=== PATIENT | female | born 1970 | race Caucasian/White ===

== ENCOUNTER 2017-12-10 11:17 | Emergency (ER) | payer OTHER ==
[~2017-12-10] VITALS: Ht 165.1 cm; Wt 80.3 kg
[~2017-12-10 11:17] MED LIST: TROKENDI XR PO
[2017-12-10] MEDS ORDERED: SODIUM CHLORIDE 0.9% 1000ML 1,000 ML IV STA (11:27)
[2017-12-10] MEDS ORDERED: ONDANSETRON HCL INJ 2 MG/ML VIAL IV STA (11:27)
[2017-12-10] MEDS ORDERED: HYOSCYAMINE 0.125 MG TAB PO ONE (11:30)
[2017-12-10 12:04] LABS: BASOPHILS # (AUTO) 0.1 (0.0-0.1); BASOPHILS % 0.7 % (0.0-1.0); EOSINOPHILS # (AUTO) 0.1 (0.0-0.4); EOSINOPHILS % 1.2 % (0.0-6.0); HEMOGLOBIN 14.1 g/dL (12.0-16.0); LYMPHOCYTES # (AUTO) 3.1 (1.0-3.2); LYMPHOCYTES % 30.4 % (18.0-39.1); MEAN CORPUSCULAR HGB CONC 33.6 g/dL (31-35); MEAN CORPUSCULAR VOLUME 86.4 fL (81-99); MONOCYTES # (AUTO) 0.6 (0.2-0.8); NEUTROPHILS # (AUTO) 6.3 (2.1-6.9); NEUTROPHILS % 61.3 % (38.7-80.0); PLATELET COUNT 348 x10e3/uL (140-360); RED BLOOD COUNT 4.86 x10e6/uL (3.6-5.1); RED CELL DISTRIBUTION WIDTH 13.2 % (11.7-14.4)
[2017-12-10 12:19] LABS: ALANINE AMINOTRANSFERASE 20 IU/L (0-55); ALBUMIN 3.8 g/dL (3.5-5.0); ALKALINE PHOSPHATASE 76 IU/L (40-150); AMYLASE 48 U/L (25-125); ANION GAP 15.4 mmol/L (8-16); BLOOD UREA NITROGEN 11 mg/dL (7-26); BUN/CREATININE RATIO 15 (6-25); CALCIUM 8.9 mg/dL (8.4-10.2); CARBON DIOXIDE 22 mmol/L (22-29); CHLORIDE 104 mmol/L (98-107); CREATININE, SERUM 0.73 mg/dL (0.57-1.11); EST GLOMERULAR FILTRATION RATE > 60 ML/MIN (60-); GLUCOSE 113 mg/dL (74-118); LIPASE 14 U/L (8-78); POTASSIUM 3.4 mmol/L (3.5-5.1); SODIUM 138 mmol/L (136-145)
[2017-12-10] MEDS ORDERED: POTASSIUM CHLORIDE 20 MEQ TAB CR PO STA (12:29)
[2017-12-10 12:36] LABS: BILIRUBIN,URINE NEGATIVE (NEGATIVE); KETONES,URINE TRACE (NEGATIVE); LEUKOCYTE ESTERASE ,URINE NEGATIVE (NEGATIVE); NITRITE,URINE NEGATIVE (NEGATIVE); URINE UROBILINOGEN 0.2 mg/dL (0.2 - 1)
[2017-12-10 12:47] LABS: CLARITY,URINE SL CLOUDY (CLEAR); COLOR,URINE YELLOW (YELLOW); PROTEIN,URINE DIPSTICK 1+ (NEGATIVE)
[2017-12-10 13:06] LABS: BACTERIA,URINE RARE /HPF; EPITHELIAL CELLS,URINE FEW /LPF
[2017-12-10 15:09] VITALS: BP 115/69
== END 2017-12-10 15:20 | disposition home or self-care (01) ==
LOC: ER 11:17
DX: R19.7 Diarrhea, unspecified (principal); R11.0 Nausea; I10 Essential (primary) hypertension; E11.9 Type 2 diabetes mellitus without complications; E78.5 Hyperlipidemia, unspecified
CPT/HCPCS: 36415; 80053; 81001; 82150; 83690; 84702; 85025; 99283; J2405; J7030

== ENCOUNTER 2019-05-28 14:57 | Inpatient (IN) | payer OTHER ==
[~2019-05-28] VITALS: Ht 153.7 cm; Wt 86.4 kg
--- OUTSIDE RECORDS SUMMARY | 2019-05-28 14:59 | XMS REPORT ---
Author Author [facility] Address Unknown Phone Unavailable Care Team Providers Care Pharmacy Technician Trainee Name Role Phone Unavailable Unavailable Payers Payer Name Policy Type Policy Number Effective Date Expiration Date Problems This patient has no known problems. Allergies, Adverse Reactions, Alerts Allergy Name Allergy Type Status Severity Reaction(s) Onset Date Inactive Date Treating Clinician Comments amitriptyline DA Active MO 2014-05-25 00:00:00 Medications This patient has no known medications.
[2019-05-28 16:06] LABS: BILIRUBIN,URINE NEGATIVE (NEGATIVE); CLARITY,URINE CLOUDY (CLEAR); COLOR,URINE RED (YELLOW); KETONES,URINE NEGATIVE (NEGATIVE); LEUKOCYTE ESTERASE ,URINE TRACE (NEGATIVE); NITRITE,URINE NEGATIVE (NEGATIVE); PROTEIN,URINE DIPSTICK 1+ (NEGATIVE); URINE UROBILINOGEN 0.2 mg/dL (0.2 - 1)
[2019-05-28 16:11] LABS: PREGNANCY TEST, URINE NEGATIVE (NEGATIVE)
[2019-05-28 16:20] LABS: BACTERIA,URINE FEW /HPF; RBC,URINE 21-50 /HPF (0-5); WBC,URINE (MAN) 0-5 /HPF (0-5)
[2019-05-28] MEDS ORDERED: SODIUM CHLORIDE 0.9% 1000ML 1,000 ML IV STA (16:23)
--- NOTE | 2019-05-28 17:43 | Diagnostic Imaging Report ---
EXAM: CT Abdomen and Pelvis without contrast INDICATION: Hematuria, back pain COMPARISON: None. TECHNIQUE: Abdomen and pelvis were scanned utilizing a multidetector helical scanner from the lung base to the pubic symphysis without contrast. Coronal and sagittal reformations were obtained. Stone protocol was performed. RADIATION DOSE: Total DLP: 588 mGy*cm Dose modulation, iterative reconstruction, and/or weight based adjustment of the mA/kV was utilized to reduce the radiation dose to as low as reasonably achievable. FINDINGS: LOWER THORAX: The lung bases are clear. HEPATOBILIARY: No focal hepatic lesions. No biliary ductal dilatation. The gallbladder appears unremarkable. SPLEEN: No splenomegaly. PANCREAS: No focal masses or ductal dilatation. ADRENALS: No adrenal nodules. KIDNEYS/URETERS: There is no hydronephrosis bilaterally. In the proximal right ureter there is a 5 mm nonobstructing calculus. The kidneys are normal in size. PELVIC ORGANS/BLADDER: Unremarkable. PERITONEUM / RETROPERITONEUM: No free air or fluid. LYMPH NODES: No lymphadenopathy. VESSELS: Unremarkable. GI TRACT: No distention or wall thickening. BONES AND SOFT TISSUES: There is a small fat-containing umbilical hernia. No acute osseous abnormalities are identified. IMPRESSION: 5 mm nonobstructing calculus in the proximal right ureter. Signed by: Ze De MD on 05/28/2019 5:39 PM
[2019-05-28 17:55] LABS: BASOPHILS # (AUTO) 0.1 (0.0-0.1); BASOPHILS % 0.7 % (0.0-1.0); EOSINOPHILS # (AUTO) 0.1 (0.0-0.4); EOSINOPHILS % 0.9 % (0.0-6.0); HEMATOCRIT 42.6 % (34.2-44.1); HEMOGLOBIN 14.1 g/dL (12.0-16.0); LYMPHOCYTES # (AUTO) 2.9 (1.0-3.2); MEAN CORPUSCULAR HEMOGLOBIN 29.1 pg (28-32); MEAN CORPUSCULAR HGB CONC 33.1 g/dL (31-35); MEAN CORPUSCULAR VOLUME 87.8 fL (81-99); MONOCYTES # (AUTO) 0.7 (0.2-0.8); NEUTROPHILS # (AUTO) 7.3 (2.1-6.9); PLATELET COUNT 335 x10e3/uL (140-360); RED BLOOD COUNT 4.85 x10e6/uL (3.6-5.1); RED CELL DISTRIBUTION WIDTH 13.5 % (11.7-14.4)
[2019-05-28 18:10] LABS: ALANINE AMINOTRANSFERASE 15 IU/L (0-55); ALBUMIN 3.4 g/dL (3.5-5.0); ALBUMIN/GLOBULIN RATIO 0.8 (0.8-2.0); ALKALINE PHOSPHATASE 97 IU/L (40-150); ANION GAP 12.7 mmol/L (8-16); BLOOD UREA NITROGEN 13 mg/dL (7-26); BUN/CREATININE RATIO 17 (6-25); CALCIUM 9.3 mg/dL (8.4-10.2); CARBON DIOXIDE 25 mmol/L (22-29); CHLORIDE 104 mmol/L (98-107); CREATININE, SERUM 0.78 mg/dL (0.57-1.11); EST GLOMERULAR FILTRATION RATE > 60 ML/MIN (60-); GLUCOSE 135 mg/dL (74-118); POTASSIUM 3.7 mmol/L (3.5-5.1); SODIUM 138 mmol/L (136-145)
[2019-05-28] MEDS ORDERED: CEFTRIAXONE SOD 1 GM/NS 50 ML 50 ML IV STA (18:50)
[2019-05-28] MEDS ORDERED: KETOROLAC TROMETHAMINE 30 MG/ML VIAL IV ONE (19:00)
[2019-05-28] MEDS ORDERED: ONDANSETRON HCL INJ 2MG/ML 2ML 2 MG/ML VIAL IV ONE (19:10)
[2019-05-28] MEDS ORDERED: ONDANSETRON HCL INJ 2MG/ML 2ML 2 MG/ML VIAL IV PRN (20:15)
[2019-05-28] MEDS ORDERED: METFORMIN HCL500 MG (21:49)
[2019-05-28] MEDS ORDERED: LOSARTAN POTASS50 MG (21:49)
[2019-05-28] MEDS ORDERED: ATORVASTATIN CA20 MG (21:49)
[2019-05-28 22:16] VITALS: BP 130/80
[2019-05-28] MEDS: HYDROMORPHONE 1MG/1ML INJ IV PRN (22:16)
[2019-05-28 22:25] VITALS: BP 130/80
[2019-05-28] MEDS: SODIUM CHLORIDE 0.9% 1000ML 1,000 ML IV SCH (23:38)
[2019-05-28] MEDS: PROMETHAZINE 12.5MG/ NACL 0.9% 12.5 MG/50 ML BAG IV PRN (23:38)
--- NOTE | 2019-05-28 23:44 | NUR ---
patient c/o n/v due to pain mediation. called placed to Dr. Oscar answering service for change of pain medication. awaiting call back.
[2019-05-29] VITALS (7 sets, daily range): BP systolic 111–140; BP diastolic 59–70
--- NOTE | 2019-05-29 00:46 | NUR ---
2nd call placed to dr gonzalez answering service. awaiting call back
[2019-05-29] MEDS: HYDROCODONE/APAP 7.5MG-325MG 1 EA TAB PO PRN ×3 (02:39→16:52)
[2019-05-29 05:44] LABS: BASOPHILS # (AUTO) 0.1 (0.0-0.1); BASOPHILS % 0.4 % (0.0-1.0); EOSINOPHILS % 0.1 % (0.0-6.0); HEMATOCRIT 38.7 % (34.2-44.1); HEMOGLOBIN 12.3 g/dL (12.0-16.0); LYMPHOCYTES # (AUTO) 1.6 (1.0-3.2); LYMPHOCYTES % 11.9 % (18.0-39.1); MEAN CORPUSCULAR HEMOGLOBIN 28.4 pg (28-32); MEAN CORPUSCULAR HGB CONC 31.8 g/dL (31-35); MEAN CORPUSCULAR VOLUME 89.4 fL (81-99); MONOCYTES # (AUTO) 0.7 (0.2-0.8); MONOCYTES % 5.2 % (4.4-11.3); NEUTROPHILS # (AUTO) 11.1 (2.1-6.9); PLATELET COUNT 299 x10e3/uL (140-360); RED BLOOD COUNT 4.33 x10e6/uL (3.6-5.1); RED CELL DISTRIBUTION WIDTH 13.5 % (11.7-14.4)
[2019-05-29 06:03] LABS: ALANINE AMINOTRANSFERASE 12 IU/L (0-55); ALBUMIN 2.8 g/dL (3.5-5.0); ALBUMIN/GLOBULIN RATIO 0.8 (0.8-2.0); ALKALINE PHOSPHATASE 74 IU/L (40-150); ANION GAP 11.4 mmol/L (8-16); BLOOD UREA NITROGEN 15 mg/dL (7-26); BUN/CREATININE RATIO 18 (6-25); CALCIUM 8.4 mg/dL (8.4-10.2); CARBON DIOXIDE 24 mmol/L (22-29); CHLORIDE 107 mmol/L (98-107); CREATININE, SERUM 0.85 mg/dL (0.57-1.11); EST GLOMERULAR FILTRATION RATE > 60 ML/MIN (60-); GLUCOSE 164 mg/dL (74-118); POTASSIUM 4.4 mmol/L (3.5-5.1); SODIUM 138 mmol/L (136-145)
[2019-05-29] MEDS ORDERED: DEXTROSE 50% SYRINGE 50 ML IV PRN (08:15)
[2019-05-29] MEDS: SODIUM CHLORIDE 0.9% 1000ML 1,000 ML IV SCH ×3 (09:10→19:45)
[2019-05-29] MEDS: HYDROMORPHONE 1MG/1ML INJ IV PRN ×2 (10:53→19:44)
[2019-05-29] MEDS: PROMETHAZINE 12.5MG/ NACL 0.9% 12.5 MG/50 ML BAG IV PRN ×2 (10:54→19:44)
--- NOTE | 2019-05-29 12:31 | NUR ---
Spoke with Dr. Garcia regarding patient. He stated she has hydronephrosis and an obstructing stone w/ gross hematuria. I notified him the CT scan stated she did not. He stated to have radiology correct the report, because the pt does. CM notified radiology, and radiologist to re evaluate.
--- NOTE | 2019-05-29 13:06 | NUR ---
PER , WILL OBTAIN KUB AND POSSIBLY HAVE STENT PLACEMENT TOMORROW DEPENDING ON EXAM RESULTS. PT TO BE NPO AFTER MIDNIGHT TONIGHT.
[2019-05-29] MEDS: INSULIN LISPRO 100 UNIT/1 ML 3ML VIAL SQ SCH ×2 (16:56→21:00)
--- NOTE | 2019-05-29 17:09 | Diagnostic Imaging Report ---
Exam: KUB - 2 views Clinical History: Abdominal pain. Comparison: CT abdomen/pelvis 05/28/2019. Findings: Bowel gas obscures visualization of the right kidney. There has likely been interval migration of the 5 mm right proximal ureteral stone to the region of the right UVJ/bladder. This calcification does not correspond to the phlebolith noted on the prior CT. Calcifications adjacent to the left L4 transverse process corresponds to phleboliths. Nonobstructive bowel gas pattern. Impression: There has likely been interval migration of the 5 mm right proximal ureteral stone to the region of the right UVJ/bladder. Signed by: Dr. Sandra Longoria MD on 05/29/2019 5:05 PM
[2019-05-29] MEDS: CEFTRIAXONE SOD 2 GM/NS 100 ML 100 ML IV SCH (17:54)
[2019-05-29] MEDS ORDERED: CEFTRIAXONE SOD 1 GM/NS 50 ML 50 ML IV SCH (18:00)
--- NOTE | 2019-05-29 19:09 | NUR ---
Bedside report and walking rounds complete. Pt resting in bed and in no apparent distress. Family at bedside. All safety measures ensured and pt call [facility] near.
[2019-05-30] VITALS (8 sets, daily range): BP systolic 119–133; BP diastolic 60–79
[2019-05-30] MEDS: PROMETHAZINE 12.5MG/ NACL 0.9% 12.5 MG/50 ML BAG IV PRN (01:58)
[2019-05-30] MEDS: HYDROMORPHONE 1MG/1ML INJ IV PRN (01:58)
[2019-05-30] MEDS: SODIUM CHLORIDE 0.9% 1000ML 1,000 ML IV SCH ×3 (04:40→20:08)
[2019-05-30] MEDS: HYDROCODONE/APAP 7.5MG-325MG 1 EA TAB PO PRN ×2 (04:41→14:08)
[2019-05-30 05:52] LABS: BASOPHILS # (AUTO) 0.1 (0.0-0.1); BASOPHILS % 0.5 % (0.0-1.0); EOSINOPHILS # (AUTO) 0.1 (0.0-0.4); EOSINOPHILS % 0.7 % (0.0-6.0); HEMATOCRIT 37.2 % (34.2-44.1); HEMOGLOBIN 11.9 g/dL (12.0-16.0); LYMPHOCYTES # (AUTO) 2.3 (1.0-3.2); LYMPHOCYTES % 19.3 % (18.0-39.1); MEAN CORPUSCULAR HEMOGLOBIN 28.8 pg (28-32); MEAN CORPUSCULAR VOLUME 90.1 fL (81-99); MONOCYTES % 8.7 % (4.4-11.3); NEUTROPHILS # (AUTO) 8.3 (2.1-6.9); NEUTROPHILS % 70.4 % (38.7-80.0); PLATELET COUNT 274 x10e3/uL (140-360); RED BLOOD COUNT 4.13 x10e6/uL (3.6-5.1); RED CELL DISTRIBUTION WIDTH 13.8 % (11.7-14.4)
[2019-05-30 06:15] LABS: ANION GAP 9.8 mmol/L (8-16); BLOOD UREA NITROGEN 12 mg/dL (7-26); BUN/CREATININE RATIO 15 (6-25); CALCIUM 8.4 mg/dL (8.4-10.2); CARBON DIOXIDE 24 mmol/L (22-29); CHLORIDE 107 mmol/L (98-107); CREATININE, SERUM 0.82 mg/dL (0.57-1.11); EST GLOMERULAR FILTRATION RATE > 60 ML/MIN (60-); GLUCOSE 144 mg/dL (74-118); POTASSIUM 3.8 mmol/L (3.5-5.1); SODIUM 137 mmol/L (136-145)
--- NOTE | 2019-05-30 07:09 | NUR ---
Bedside report and walking rounds complete with day shift RN.
--- NOTE | 2019-05-30 07:11 | NUR ---
Morning rounds completed. Patient sitting in bed, no signs of distress. Denies pain at this time. Bed locked and in low position, call light placed within reach. Patient instructed to call for assistance if needed. Will continue to monitor.
[2019-05-30] MEDS: INSULIN LISPRO 100 UNIT/1 ML 3ML VIAL SQ SCH ×4 (07:30→20:42)
[2019-05-30] MEDS ORDERED: ACETAMINOPHEN 325 MG TAB PO PRN (09:15)
--- NOTE | 2019-05-30 14:20 | History and Physical ---
CHIEF COMPLAINT: Abdominal pain and hematuria. HISTORY OF PRESENT ILLNESS: This is a 49-year-old female with a past medical history of diabetes and hyperlipidemia, who was in her usual state of health until patient came to the ER with a history of severe abdominal pain, back pain, burning urination, and hematuria for one day. No chest pain. No shortness of breath. No hematochezia. No melena. No leg pain, leg swelling. No diarrhea. No constipation. No headache. ALLERGIES: AMITRIPTYLINE, ONDANSETRON. PAST MEDICAL HISTORY: Diabetes and hyperlipidemia. PAST SURGICAL HISTORY: Tubal ligation. SOCIAL HISTORY: The patient is . HABITS: Denies smoking. Denies alcohol use. Denies illicit drug use. MEDICATION LIST: Metformin and Lipitor. REVIEW OF SYSTEMS: GENERAL: Denies fatigue or weakness. HEENT: No diplopia. No blurry vision. CARDIOPULMONARY: No chest pain. No shortness of breath. No cough. ALIMENTARY SYSTEM: No nausea. No vomiting, but abdomen pain and back pain. GENITOURINARY SYSTEM: Has hematuria and dysuria. MUSCULOSKELETAL: No joint pain. CENTRAL NERVOUS SYSTEM: No focal weakness. PHYSICAL EXAMINATION: GENERAL: This is a 49-year-old female, who is alert, oriented x3, in no gross distress. VITAL SIGNS: Temperature 98, pulse 80, respiratory rate 16, blood pressure 132/68. HEENT: Head is atraumatic and normocephalic. Pupils are bilaterally equal and reactive to light. Extraocular muscles are intact. NECK: Supple. No JVD. No carotid bruits. LUNGS: Clear to auscultation and percussion bilaterally. No added sounds. HEART: S1 and S2. Regular rate and rhythm. No S3, S4, or murmur. ABDOMEN: Mild lower abdominal tenderness. Soft. No guarding, rigidity. EXTREMITIES: No edema. Peripheral pulses +1. VP CARE MANAGEMENT: Grossly nonfocal. LABORATORY AND DIAGNOSTIC DATA: CT of abdomen shows 5 mm nonobstructing calculus in the proximal right ureter. CMP and CBC, white count is 11.08, sodium 138, potassium 3.7, BUN and creatinine normal. Glucose 135. LFTs normal. ASSESSMENT: 1. Right ureteral stone. No hydronephrosis. 2. Diabetes mellitus type 2. 3. Hyperlipidemia. 4. Possible urinary tract infection. PLAN: IV fluids, normal saline at 125 mL/h. Pain medicine p.r.n. Rocephin 2 g IV every 24 hours. Urology consult, Dr. Young and Dr. Garcia. Case discussed with the patient. All condition and prognosis discussed with consultants. MD STACIE Garrido/DANIAL /[id number]
[2019-05-30] MEDS: CEFTRIAXONE SOD 2 GM/NS 100 ML 100 ML IV SCH (17:29)
[2019-05-30] MEDS ORDERED: ACETAMIN/BUTALBITAL/CAFFEINE TAB PO NR (18:00)
[2019-05-30] MEDS ORDERED: ACETAMIN/BUTALBITAL/CAFFEINE TAB PO PRN (18:15)
--- NOTE | 2019-05-30 19:06 | NUR ---
Bedside report given to night nurse. Patient in stable condition.
--- NOTE | 2019-05-30 20:00 | NUR ---
INITIAL ASSESSMENT COMPLETE, CALL LIGHT IN REACH, NO PAIN NOTED, NO DISTRESS NOTED, VS STABLE, PT AMBULATES TO BATHROOM, IV IN TACT, TOLD TO CALL FOR NEEDS
--- NOTE | 2019-05-30 21:42 | Consultation ---
DATE OF CONSULTATION: 05/29/2019 Urologic Consultation Consultation is called by Dr. Oscar. CHIEF UROLOGIC COMPLAINT AND REASON FOR CONSULTATION: A 5 mm ureteral calculus, left ureteral proximal. HISTORY OF PRESENT ILLNESS: Ms. Anderson is a 49-year-old female who has experienced an acute onset sharp severe flank pain, not relenting, not radiating. Denied fevers or chills. Positive nausea. Denied vomiting. PAST MEDICAL HISTORY: Denied. MEDICATIONS: Please see MAR. ALLERGIES: NKDA. SOCIAL HISTORY: Denied smoking or drinking. FAMILY HISTORY: Denied urologic stones or malignancies. REVIEW OF SYSTEMS: Noncontributory, other than problems mentioned above for 12 organ systems. PHYSICAL EXAMINATION: GENERAL: Middle-aged female, in no distress. VITAL SIGNS: Currently, temperature 98.9, pulse 74, respirations 15, blood pressure 137/70. HEENT: Sclerae anicteric. NECK: Supple. BACK: Without costovertebral angle tenderness bilaterally. ABDOMEN: Soft. It is nontender and nondistended. No palpable mass. No palpable hernias. No palpable adenopathy. : Normal female external genitalia. EXTREMITIES: No edema. NEURO: Moving all four extremities. PSYCH: Alert and mood appropriate. SKIN: Intact. Normal color. PERTINENT LABORATORY DATA: CT scan revealing hydronephrosis 5 mm proximal ureteral calculus. Hemoglobin 12, hematocrit 38, platelet count 299,000. White blood nitin count 13,000. Sodium 138, potassium 4.4, chloride 107, bicarb 24, BUN 15, creatinine 0.86, glucose 164. IMPRESSION: 1. Ureteral calculus. 2. Hydronephrosis. 3. Microscopic hematuria. 4. Renal colic. 5. Hypertension. PLAN: Long discussion with the patient about alternatives, risks, and benefits including doing nothing, shockwave lithotripsy, ureteroscopy, percutaneous surgery, open surgery, stenting or nephrostomy. Surgery was performed. Labs are reviewed. A 5 mm stone. The patient has 50:50 chance of passing this on Thank you for allowing me to participate in the care of your patient. I will be happy to follow along with you. MD JODIE Sarkar/MODL /[id number] cc: Chanda Oscar MD
--- NOTE | 2019-05-31 | NUR ---
VS STABLE, PT AWAKE EASILY FOR VS, NO DISTRESS NOTED, TOLD TO CALL FOR NEEDS, CALL LIGHT IN REACH
[2019-05-31 00:15] VITALS: BP 138/93
[2019-05-31] MEDS: HYDROCODONE/APAP 7.5MG-325MG 1 EA TAB PO PRN (00:29)
--- NOTE | 2019-05-31 04:00 | NUR ---
PT AWAKE EASILY, VS STABLE, NO DISTRESS NOTED
[2019-05-31 04:25] VITALS: BP 129/94
--- NOTE | 2019-05-31 07:00 | NUR ---
BEDSIDE SHIFT REPORT RECEIVED PT IN STABLE CONDITION, UPDATED ON POC VOICED UNDERSTANDING, DENIES PAIN AT THIS TIME, CALL LIGHT IN REACH WILL CONTINUE TO MONITOR
[2019-05-31] MEDS: INSULIN LISPRO 100 UNIT/1 ML 3ML VIAL SQ SCH (07:30)
[2019-05-31 07:54] VITALS: BP 129/94
[2019-05-31 08:00] VITALS: BP 141/87
--- NOTE | 2019-06-29 16:10 | Discharge Summary ---
CHIEF COMPLAINT: Abdominal pain and hematuria. FINAL DIAGNOSES: Nephrolithiasis, renal colic, diabetes. HOSPITAL COURSE: A 49-year-old female with history of diabetes and hyperlipidemia, was in baseline state of health until she presented to the ER with complaints of severe abdominal pain, back pain, burning upon urination and hematuria for one day. No other complaints. She underwent review and evaluation in the emergency room and following the results of the studies, admission was made regarding assessment of right ureteral stone. No hydronephrosis, diabetes type 2, hyperlipidemia, possible urinary tract infection. We will begin IV fluids, addressed analgesics. Begin IV antibiotics. Requested Urology followup. With admission, the patient did see Dr. Garcia regarding these findings of calculus in her ureteral with this review of the patient, his impression was ureteral calculus, hydronephrosis, microscopic hematuria, renal colic, hypertension. Plan of attack was discussed with the patient. Alternatives, risks, benefits, noted to have a 5 mm stone, told that she had a 50:50 chance of passing the stone all alone. She was admitted to the Med-Surg floor, began analgesic coverage, fluid coverage, medication coverage as mentioned. She was n.p.o. Labs were being watched closely. Urine was being strained. She was having some evidence of leukocytosis. As she was continuing, the abdominal pain was decreasing, but she was having more concern with bladder pain. No back pain. No fever. Followup x-rays, KUB showed that the stone has moved down to the UVJ bladder region, however, the patient will continue a positive progress and will pass this on her own. She was continued on her antibiotics and fluids and medications for pain. Urine continued to be strained. She was able to pass a stone during her hospitalization. Stone was sent to analysis. The patient stabilized. The patient was able to be discharged from the facility on 05/31/2019 in good condition. IMAGING DATA: Abdomen and pelvis CT shows a 5 mm obstructing calculus in the proximal right ureter. Follow up abdomen x-ray one day later shows that there has likely been interval migration of the 5 mm right proximal ureteral stone to the region of the right UVJ/bladder. Urine culture was negative. LABORATORY STUDIES: Shows initial CBC, white cell count elevated at 11,000, H and H was normal. Followup CBC shows a white cell count increased to 13,500, H and H have remained normal, final H and H's fell to 11.8 and 37.2, final white cell count 11,800. Urinalysis shows a cloudy clarity, red color, 1+ protein, 3+ occult blood, 21 to 50 rbc's by high-power field, 0 to 5 WBCs by high-power field, few bacteria. Chemistries reveal initial panel electrolytes normal. Kidney function was normal. Glucose 135. Further chemistry shows a close watch of the sugars, values were as high as 209, final study 123. Final electrolytes stable. Final kidney function stable. As stated, she passed her stone. She was cleared for discharge. She will be released home. Her IVs were discontinued. She will be returning to her regular diet. No equipments or supplies were necessary. No drain or St was needed. Activity level as directed by myself, Dr. Garcia. The patient will continue on atorvastatin, calcium 20 mg daily, losartan potassium 50 mg daily, metformin 500 mg b.i.d., Trokendi XR 100 mg p.o. daily. She will be following back up with me in my office within 2 to 3 days. Dictated by BLANCA Resendez Danny Berg MD CC/MODL /[id number]
== END 2019-05-31 10:03 | disposition home or self-care (01) | DRG 694 ==
LOC: ER 14:57 → ERHOLD 20:18 → MED/SURG 22:17
PROVIDERS: ADMIT Internal Medicine; ATTEND Internal Medicine
DX: N20.1 Calculus of ureter (principal); N39.0 Urinary tract infection, site not specified; R31.9 Hematuria, unspecified; E11.9 Type 2 diabetes mellitus without complications; E78.5 Hyperlipidemia, unspecified; N23 Unspecified renal colic
CPT/HCPCS: 36415; 74018; 74176; 80048; 80053; 81001; 81025; 82948; 85025; 87086; 88300; 96361; 99284; J0696; J1170; J1885; J2550; J7030

== ENCOUNTER → 2019-11-03 | Day surgery (SDC) | payer OTHER ==
[~2019-11-03] MED LIST changes: +ATORVASTATIN CA20 MG; +LIDOCAINE HCL 2% LOCAL INJ 5 ML SDV VIAL INJ ONE; +LOSARTAN POTASS50 MG PO; +METFORMIN HCL500 MG; +MIDAZOLAM HCL 2 MG/2 ML VIAL ONE; +OZEMPIC0.25 MG/0.; +OZEMPIC1 MG/0.75 SC; +PROPOFOL IV EMULSION 10 MG/ML 50 ML VIAL ONE
[2019-11-03 08:35] VITALS: BP 114/80
--- NOTE | 2019-11-03 11:27 | Operative Report ---
DATE OF PROCEDURE: 11/03/2019 SURGEON: Malik Mckeon MD PROCEDURES: EGD with biopsies and balloon dilatation of pyloric channel stricture. INDICATIONS FOR PROCEDURE: Upper abdominal pain, nausea, vomiting, and bloating. MEDICATIONS: The patient was done under MAC, please see anesthesiologist's note. PROCEDURE IN DETAIL: With the patient in the left lateral decubitus position, a flexible fiberoptic Olympus gastroscope was introduced into the esophagus under direct visualization without any difficulty. There was some patchy erythema noted in distal esophagus. The scope was then advanced with ease into the stomach traversing a small sliding hiatal hernia. [id number] amount of retained undigested food was noted in the stomach precluding partially visualization of the fundus and the proximal body of the stomach along the greater curvature. Mucosa overlying the distal body and the antrum revealed some diffuse erythema and low-grade to moderate edema, and biopsies were obtained and sent to stain for H. pylori. The pylorus was somewhat strictured, traversed with some difficulty with the scope and that was dilated to size 20 mm per TTS balloon dilators. The scope was advanced all the way to the second portion of the duodenum. Biopsies were obtained from the second portion and duodenal bulb to rule out sprue. The scope was then withdrawn back into the stomach and retroflexed, and the fundus as well as the body of the stomach were partially visualized due to the retained undigested food. The scope was then straightened out, it was subsequently withdrawn, and the patient tolerated the procedure well. IMPRESSION: 1. Distal esophagitis, mild. 2. Small sliding hiatal hernia. 3. Large amount of retained undigested food in stomach, precluding visualization partially of fundus and proximal body. 4. Gastritis, antrum biopsied, biopsies sent to stain for Helicobacter pylori. 5. Pyloric channel stricture dilated to size 20 mm per TTS balloon dilators. 6. Rule out sprue. PLAN: Follow up histology. Initiate Protonix 40 mg 1 p.o. q.a.m. before meals. The patient might benefit from a followup EGD electively after 24 hours of clear liquid diet to be able to flush out the stomach and to optimally visualized the fundus and the body. Malik Mckeon MD [facility] [place]/MODL /[id number] cc: Chanda Oscar MD
== END | disposition home or self-care (01) ==
LOC: OR 05:50
PROVIDERS: ATTEND Internal Medicine Gastroenterology
DX: K29.50 Unspecified chronic gastritis without bleeding (principal); K31.84 Gastroparesis; K20.9 Esophagitis, unspecified; K44.9 Diaphragmatic hernia without obstruction or gangrene; K31.89 Other diseases of stomach and duodenum; K31.1 Adult hypertrophic pyloric stenosis; K21.9 Gastro-esophageal reflux disease without esophagitis; K76.0 Fatty (change of) liver, not elsewhere classified; E11.9 Type 2 diabetes mellitus without complications; E78.5 Hyperlipidemia, unspecified; I10 Essential (primary) hypertension; F32.9 Major depressive disorder, single episode, unspecified; Z88.8 Allergy status to other drugs, medicaments and biological substances; Z79.84 Long term (current) use of oral hypoglycemic drugs; Z68.28 Body mass index [BMI] 28.0-28.9, adult
CPT/HCPCS: 36415; 43239; 43245; 81025; 82948; C1726; J2001; J2250; J2704; 43450

== ENCOUNTER 2019-12-28 15:12 | Emergency (ER) | payer BC, OTHER ==
[~2019-12-28] VITALS: Ht 153.7 cm; Wt 86.2 kg
[~2019-12-28 15:12] MED LIST changes: -LIDOCAINE HCL 2% LOCAL INJ 5 ML SDV VIAL INJ ONE; -MIDAZOLAM HCL 2 MG/2 ML VIAL ONE; -PROPOFOL IV EMULSION 10 MG/ML 50 ML VIAL ONE
[2019-12-28] MEDS ORDERED: ASPIRIN 81 MG CHEW TAB PO ONE (15:30)
[2019-12-28 15:56] LABS: BASOPHILS # (AUTO) 0.1 (0.0-0.1); BASOPHILS % 0.5 % (0.0-1.0); EOSINOPHILS # (AUTO) 0.1 (0.0-0.4); EOSINOPHILS % 0.9 % (0.0-6.0); HEMATOCRIT 43.4 % (34.2-44.1); HEMOGLOBIN 14.2 g/dL (12.0-16.0); LYMPHOCYTES # (AUTO) 3.2 (1.0-3.2); LYMPHOCYTES % 27.5 % (18.0-39.1); MEAN CORPUSCULAR HEMOGLOBIN 28.9 pg (28-32); MEAN CORPUSCULAR HGB CONC 32.7 g/dL (31-35); MEAN CORPUSCULAR VOLUME 88.2 fL (81-99); MONOCYTES # (AUTO) 0.7 (0.2-0.8); MONOCYTES % 6.3 % (4.4-11.3); NEUTROPHILS # (AUTO) 7.5 (2.1-6.9); NEUTROPHILS % 64.4 % (38.7-80.0); PLATELET COUNT 410 x10e3/uL (140-360); RED BLOOD COUNT 4.92 x10e6/uL (3.6-5.1); RED CELL DISTRIBUTION WIDTH 13.2 % (11.7-14.4)
[2019-12-28 16:13] LABS: INR 0.9; PROTHROMBIN TIME 12.7 seconds (11.9-14.5)
[2019-12-28 16:20] LABS: ALANINE AMINOTRANSFERASE 25 IU/L (0-55); ALBUMIN 3.7 g/dL (3.5-5.0); ALBUMIN/GLOBULIN RATIO 0.8 (0.8-2.0); ALKALINE PHOSPHATASE 94 IU/L (40-150); ANION GAP 11.4 mmol/L (8-16); BLOOD UREA NITROGEN 11 mg/dL (7-26); BUN/CREATININE RATIO 14 (6-25); CALCIUM 9.3 mg/dL (8.4-10.2); CARBON DIOXIDE 27 mmol/L (22-29); CHLORIDE 105 mmol/L (98-107); CREATINE KINASE 93 IU/L (29-168); CREATININE, SERUM 0.77 mg/dL (0.57-1.11); EST GLOMERULAR FILTRATION RATE > 60 ML/MIN (60-); GLUCOSE 134 mg/dL (74-118); POTASSIUM 3.4 mmol/L (3.5-5.1); SODIUM 140 mmol/L (136-145)
--- NOTE | 2019-12-28 17:44 | Diagnostic Imaging Report ---
EXAM: CT Chest WITH contrast 12/28/2019 3:21 PM INDICATION: Chest pain, chest heaviness COMPARISON: CT abdomen/pelvis, 10/11/2019 TECHNIQUE: Chest was scanned utilizing a multidetector helical scanner from the lung apex through the level of the diaphragm after administration of IV contrast. Thin section reconstructions were obtained with special concentration on the pulmonary arteries. Coronal and sagittal reformations were obtained. Pulmonary embolism protocol was performed. Dose modulation, iterative reconstruction, and/or weight based adjustment of the mA/kV was utilized to reduce the radiation dose to as low as reasonably achievable IV CONTRAST: 100 cc [id number] RADIATION DOSE: Total DLP: 520 mGy*cm Estimated effective dose: (DLP x 0.014 x size factor) mSv COMPLICATIONS: None FINDINGS: Main pulmonary artery density: 208 HU, marginal opacification LINES/ TUBES: None. LUNGS AND AIRWAYS: No filling defect is identified within the pulmonary arteries to the segmental level, within limits of suboptimal peripheral vessel opacification. No pulmonary focal opacity or consolidation. There is mild dependent lower lobe atelectasis. Trachea and main bronchi are clear. PLEURA: No pleural effusion or pneumothorax. HEART AND MEDIASTINUM: The thyroid gland is normal. No mediastinal, hilar or axillary lymphadenopathy. The heart is normal in size.. There is no pericardial effusion. No aneurysm or dissection of the thoracic aorta. Ascending aorta measures 3.1 cm, normal. Main pulmonary artery 3.0 cm, upper limits normal. UPPER ABDOMEN: Included portions of the liver are low density relative to spleen compatible with hepatic steatosis. Included portions of the spleen, pancreas and adrenals show no focal pathology. BONES: No acute or suspicious bony lesions. There are scattered degenerative changes in the thoracic spine. SOFT TISSUES: Superficial surrounding soft tissue unremarkable. IMPRESSION: 1. No CT evidence for acute pulmonary embolism. No aneurysm or dissection of the thoracic aorta. 2. Hepatic steatosis. Staff: Ismael Signed by: Dr. Andrea Guevara M.D. on 12/28/2019 5:40 PM
[2019-12-28 18:39] LABS: CREATINE KINASE 73 IU/L (29-168)
[2019-12-28] MEDS ORDERED: HYDROCODONE/APAP 10MG-325MG TAB PO ONE (18:45)
[2019-12-28] MEDS ORDERED: SODIUM CHLORIDE 0.9% 50ML 50 ML ONE (20:26)
[2019-12-28] MEDS ORDERED: IOPAMIDOL 370 MG/ML 200 ML INFUS..BTL INJ ONE (20:27)
== END 2019-12-28 20:18 | disposition home or self-care (01) ==
LOC: ER 15:12
DX: R07.89 Other chest pain (principal); I10 Essential (primary) hypertension; E11.9 Type 2 diabetes mellitus without complications; E78.5 Hyperlipidemia, unspecified
CPT/HCPCS: 36415; 71260; 80053; 82550; 82553; 83880; 84484; 85025; 85610; 93005; 99284; Q9967

== ENCOUNTER 2019-12-29 16:47 | Emergency (ER) | payer BC ==
[~2019-12-29] VITALS: Ht 153.7 cm; Wt 86.2 kg
[2019-12-29] MEDS ORDERED: KETOROLAC TROMETHAMINE 60 MG/2 ML VIAL IM ONE (17:15)
[2019-12-29] MEDS ORDERED: NITROGLYCERIN 0.4 MG SUBL SL ONE (17:15)
== END 2019-12-29 18:51 | disposition home or self-care (01) ==
LOC: ER 16:53
DX: R06.09 Other forms of dyspnea (principal); F41.9 Anxiety disorder, unspecified; I10 Essential (primary) hypertension; E11.9 Type 2 diabetes mellitus without complications; E78.5 Hyperlipidemia, unspecified
CPT/HCPCS: 36415; 84484; 99284; J1885

== ENCOUNTER 2020-10-05 07:06 | Emergency (ER) | payer BC ==
[~2020-10-05] VITALS: Ht 153.7 cm; Wt 86.2 kg
[2020-10-05] MEDS ORDERED: SODIUM CHLORIDE 0.9% 1000ML 1,000 ML IV STA (07:43)
[2020-10-05] MEDS ORDERED: PANTOPRAZOLE 40 MG 10ML VIAL IV STA (07:43)
[2020-10-05] MEDS ORDERED: HYDROCODONE/CHLORPHENIRAMINE 5 ML LIQCR PO ONE (07:45)
[2020-10-05] MEDS ORDERED: PROMETHAZINE 12.5MG/ NACL 0.9% 12.5 MG/50 ML BAG IV ONE (07:45)
[2020-10-05 08:03] LABS: BASOPHILS % 0.2 % (0.0-1.0); HEMATOCRIT 44.6 % (34.2-44.1); HEMOGLOBIN 14.4 g/dL (12.0-16.0); LYMPHOCYTES # (AUTO) 1.1 (1.0-3.2); LYMPHOCYTES % 19.1 % (18.0-39.1); MEAN CORPUSCULAR HEMOGLOBIN 27.5 pg (28-32); MEAN CORPUSCULAR HGB CONC 32.3 g/dL (31-35); MEAN CORPUSCULAR VOLUME 85.3 fL (81-99); MONOCYTES # (AUTO) 0.3 (0.2-0.8); MONOCYTES % 5.9 % (4.4-11.3); NEUTROPHILS # (AUTO) 4.1 (2.1-6.9); NEUTROPHILS % 74.3 % (38.7-80.0); PLATELET COUNT 338 x10e3/uL (140-360); RED BLOOD COUNT 5.23 x10e6/uL (3.6-5.1); RED CELL DISTRIBUTION WIDTH 14.1 % (11.7-14.4)
[2020-10-05 08:24] LABS: INR 0.85; PROTHROMBIN TIME 12.1 seconds (11.9-14.5)
[2020-10-05 08:25] LABS: PARTIAL THROMBOPLASTIN TIME 25.3 seconds (23.8-35.5)
[2020-10-05 08:34] LABS: ALANINE AMINOTRANSFERASE 37 IU/L (0-55); ALBUMIN 3.6 g/dL (3.5-5.0); ALBUMIN/GLOBULIN RATIO 0.8 (0.8-2.0); ALKALINE PHOSPHATASE 116 IU/L (40-150); ANION GAP 15.3 mmol/L (8-16); BLOOD UREA NITROGEN 11 mg/dL (7-26); BUN/CREATININE RATIO 14 (6-25); CALCIUM 8.7 mg/dL (8.4-10.2); CARBON DIOXIDE 22 mmol/L (22-29); CHLORIDE 104 mmol/L (98-107); CREATINE KINASE 45 IU/L (29-168); CREATININE, SERUM 0.77 mg/dL (0.57-1.11); EST GLOMERULAR FILTRATION RATE > 60 ML/MIN (60-); GLUCOSE 187 mg/dL (74-118); MAGNESIUM 1.7 MG/DL (1.3-2.1); POTASSIUM 3.3 mmol/L (3.5-5.1); SODIUM 138 mmol/L (136-145)
[2020-10-05] MEDS ORDERED: SODIUM CHLORIDE 0.9% 50ML 50 ML ONE (08:52)
[2020-10-05] MEDS ORDERED: IOPAMIDOL 370 MG/ML 200 ML INFUS..BTL INJ ONE (08:52)
== END 2020-10-05 10:40 | disposition home or self-care (01) ==
LOC: ER 07:27
DX: U07.1 COVID-19 (principal); J18.9 Pneumonia, unspecified organism; R06.02 Shortness of breath; R05 Cough; I10 Essential (primary) hypertension; E11.9 Type 2 diabetes mellitus without complications; E78.5 Hyperlipidemia, unspecified; M54.9 Dorsalgia, unspecified; G89.29 Other chronic pain
CPT/HCPCS: 36415; 71260; 80053; 82550; 82553; 83735; 83880; 84484; 84702; 85025; 85610; 85730; 87040; 93005; 99284; C9113; J2550; J7030; Q9967

== ENCOUNTER 2023-01-08 13:55 | Emergency (ER) | payer BC, OTHER ==
[~2023-01-08] VITALS: Ht 153.7 cm; Wt 86.2 kg
[~2023-01-08 13:55] MED LIST changes: +IBUPROFEN600 MG PO; +METHOCARBAMOL750 MG PO
[2023-01-08] MEDS ORDERED: DOXYCYCLINE HY100 MG PO (14:17)
== END 2023-01-08 14:45 | disposition home or self-care (01) ==
LOC: ER 14:04
DX: S61.412A Laceration without foreign body of left hand, initial encounter (principal); W45.8XXA Other foreign body or object entering through skin, initial encounter; W27.2XXA Contact with scissors, initial encounter; Y92.89 Other specified places as the place of occurrence of the external cause
CPT/HCPCS: 99282

== ENCOUNTER 2023-01-25 15:27 | Inpatient (IN) | payer BC ==
[~2023-01-25] VITALS: Ht 165.1 cm; Wt 79.4 kg
[~2023-01-25 15:27] MED LIST changes: +DOXYCYCLINE HY100 MG PO
[2023-01-25] MEDS ORDERED: Morphine 2mg Syringe 2 MG/ML SYR IV STA (15:57)
[2023-01-25 16:10] LABS: BASOPHILS # (AUTO) 0.1 (0.0-0.1); BASOPHILS % 0.7 % (0.0-1.0); EOSINOPHILS # (AUTO) 0.1 (0.0-0.4); EOSINOPHILS % 0.7 % (0.0-6.0); HEMATOCRIT 41.3 % (34.2-44.1); HEMOGLOBIN 13.2 g/dL (12.0-16.0); LYMPHOCYTES # (AUTO) 3.2 (1.0-3.2); LYMPHOCYTES % 34.6 % (18.0-39.1); MEAN CORPUSCULAR VOLUME 87.7 fL (81-99); MONOCYTES # (AUTO) 0.5 (0.2-0.8); MONOCYTES % 5.6 % (4.4-11.3); NEUTROPHILS # (AUTO) 5.4 (2.1-6.9); NEUTROPHILS % 58.1 % (38.7-80.0); PLATELET COUNT 385 x10e3/uL (140-360); RED BLOOD COUNT 4.71 x10e6/uL (3.6-5.1); RED CELL DISTRIBUTION WIDTH 13.6 % (11.7-14.4)
[2023-01-25 16:20] LABS: INR 0.88; PROTHROMBIN TIME 12.4 seconds (11.9-14.5)
[2023-01-25 16:21] LABS: PARTIAL THROMBOPLASTIN TIME 24.2 seconds (23.8-35.5)
[2023-01-25 16:29] LABS: ALBUMIN 3.7 g/dL (3.5-5.0); ALBUMIN/GLOBULIN RATIO 0.9 (0.8-2.0); ANION GAP 15.2 mmol/L (8-16); CALCIUM 9.5 mg/dL (8.4-10.2); CREATININE, SERUM 0.69 mg/dL (0.57-1.11); POTASSIUM 3.2 mmol/L (3.5-5.1)
[2023-01-25] MEDS ORDERED: POTASSIUM CHLORIDE 20 MEQ TAB CR PO STA (16:57)
[2023-01-25] MEDS ORDERED: NITROGLYCERIN 0.4 MG SUBL SL PRN (17:00)
[2023-01-25] MEDS ORDERED: Morphine 2mg Syringe 2 MG/ML SYR IV PRN (17:00)
[2023-01-25 20:15] VITALS: BP 136/85
[2023-01-25] MEDS ORDERED: PROTONIX20 MG PO (21:13)
[2023-01-25] MEDS: FAMOTIDINE 20 MG/2 ML VIAL IV SCH (21:22)
[2023-01-25 22:15] VITALS: BP 136/85
[2023-01-26 01:52] LABS: CREATINE KINASE 80 IU/L (29-168)
[2023-01-26 04:00] VITALS: BP 125/80
[2023-01-26 04:55] LABS: BASOPHILS # (AUTO) 0.1 (0.0-0.1); BASOPHILS % 0.7 % (0.0-1.0); EOSINOPHILS # (AUTO) 0.1 (0.0-0.4); EOSINOPHILS % 1.1 % (0.0-6.0); HEMATOCRIT 37.9 % (34.2-44.1); LYMPHOCYTES # (AUTO) 2.8 (1.0-3.2); LYMPHOCYTES % 32.4 % (18.0-39.1); MEAN CORPUSCULAR HGB CONC 31.7 g/dL (31-35); MEAN CORPUSCULAR VOLUME 88.6 fL (81-99); MONOCYTES # (AUTO) 0.6 (0.2-0.8); MONOCYTES % 7.3 % (4.4-11.3); NEUTROPHILS % 58.1 % (38.7-80.0); PLATELET COUNT 343 x10e3/uL (140-360); RED BLOOD COUNT 4.28 x10e6/uL (3.6-5.1); RED CELL DISTRIBUTION WIDTH 13.7 % (11.7-14.4)
[2023-01-26 05:23] LABS: ALBUMIN 3.1 g/dL (3.5-5.0); ALBUMIN/GLOBULIN RATIO 0.9 (0.8-2.0); ANION GAP 13.8 mmol/L (8-16); CALCIUM 8.5 mg/dL (8.4-10.2); CHOL/HDL RATIO 3.8 (3.0-3.6); CREATINE KINASE 73 IU/L (29-168); CREATININE, SERUM 0.65 mg/dL (0.57-1.11); POTASSIUM 3.8 mmol/L (3.5-5.1)
[2023-01-26 09:40] VITALS: BP 126/79
[2023-01-26] MEDS: FAMOTIDINE 20 MG/2 ML VIAL IV SCH ×2 (09:44→20:31)
[2023-01-26] MEDS: ASPIRIN 81 MG ENTERIC COATED PO SCH (09:44)
[2023-01-26] MEDS ORDERED: EXCEDRIN MIGRA1 EAC3 PO (09:51)
[2023-01-26 10:04] VITALS: BP 125/80
[2023-01-26] MEDS: ACETAMINOPHEN/ASPIRIN/CAFFEINE 1 EA TAB PO PRN (10:13)
[2023-01-26 13:24] LABS: CREATINE KINASE 72 IU/L (29-168)
[2023-01-26] MEDS: SUCRALFATE 1 GM TAB PO SCH ×2 (15:18→20:29)
[2023-01-26] MEDS ORDERED: PANTOPRAZOLE SOD 40 MG TABEC PO SCH (16:00)
[2023-01-26 16:51] VITALS: BP 125/78
[2023-01-26] MEDS ORDERED: METFORMIN HCL 500 MG TAB PO SCH (17:00)
[2023-01-26 20:00] VITALS: BP 118/71
[2023-01-26] MEDS: METFORMIN HCL 500 MG TAB PO SCH (20:30)
[2023-01-26] MEDS: LOSARTAN POTASSIUM 25 MG TAB PO SCH (20:31)
[2023-01-26] MEDS: PANTOPRAZOLE SOD 40 MG TABEC PO SCH (20:37)
[2023-01-26 21:00] VITALS: BP 118/71
[2023-01-27] VITALS (8 sets, daily range): BP systolic 117–148; BP diastolic 69–83
[2023-01-27] MEDS ORDERED: ATORVASTATIN 20 MG TAB PO SCH (09:00)
[2023-01-27] MEDS: SUCRALFATE 1 GM TAB PO SCH ×4 (09:09→22:59)
[2023-01-27] MEDS: ASPIRIN 81 MG ENTERIC COATED PO SCH (09:09)
[2023-01-27] MEDS: PANTOPRAZOLE SOD 40 MG TABEC PO SCH ×2 (09:09→16:30)
[2023-01-27] MEDS: FAMOTIDINE 20 MG/2 ML VIAL IV SCH ×2 (09:10→23:01)
[2023-01-27] MEDS: METFORMIN HCL 500 MG TAB PO SCH ×2 (09:10→22:59)
[2023-01-27] MEDS: ACETAMINOPHEN/ASPIRIN/CAFFEINE 1 EA TAB PO PRN ×2 (09:11→23:14)
[2023-01-27] MEDS: ATORVASTATIN 20 MG TAB PO SCH (23:00)
[2023-01-27] MEDS: LOSARTAN POTASSIUM 25 MG TAB PO SCH (23:00)
[2023-01-28] VITALS (7 sets, daily range): BP systolic 95–125; BP diastolic 64–85
[2023-01-28 04:49] LABS: BASOPHILS # (AUTO) 0.1 (0.0-0.1); BASOPHILS % 0.9 % (0.0-1.0); EOSINOPHILS # (AUTO) 0.1 (0.0-0.4); EOSINOPHILS % 1.2 % (0.0-6.0); HEMATOCRIT 40.4 % (34.2-44.1); HEMOGLOBIN 13.2 g/dL (12.0-16.0); LYMPHOCYTES % 36.9 % (18.0-39.1); MEAN CORPUSCULAR HEMOGLOBIN 28.3 pg (28-32); MEAN CORPUSCULAR HGB CONC 32.7 g/dL (31-35); MEAN CORPUSCULAR VOLUME 86.7 fL (81-99); MONOCYTES # (AUTO) 0.7 (0.2-0.8); NEUTROPHILS # (AUTO) 4.3 (2.1-6.9); NEUTROPHILS % 52.8 % (38.7-80.0); PLATELET COUNT 358 x10e3/uL (140-360); RED BLOOD COUNT 4.66 x10e6/uL (3.6-5.1); RED CELL DISTRIBUTION WIDTH 13.7 % (11.7-14.4)
[2023-01-28 05:04] LABS: ANION GAP 12.6 mmol/L (8-16); CALCIUM 8.6 mg/dL (8.4-10.2); CREATININE, SERUM 0.71 mg/dL (0.57-1.11); POTASSIUM 3.6 mmol/L (3.5-5.1)
[2023-01-28] MEDS: METFORMIN HCL 500 MG TAB PO SCH ×2 (09:42→21:00)
[2023-01-28] MEDS: PANTOPRAZOLE SOD 40 MG TABEC PO SCH ×2 (09:43→17:42)
[2023-01-28] MEDS: FAMOTIDINE 20 MG/2 ML VIAL IV SCH ×2 (09:43→22:20)
[2023-01-28] MEDS: SUCRALFATE 1 GM TAB PO SCH ×4 (09:43→22:18)
[2023-01-28] MEDS: ASPIRIN 81 MG ENTERIC COATED PO SCH (09:43)
[2023-01-28] MEDS: LOSARTAN POTASSIUM 25 MG TAB PO SCH (22:17)
[2023-01-28] MEDS: ATORVASTATIN 20 MG TAB PO SCH (22:18)
[2023-01-29] VITALS (8 sets, daily range): BP systolic 95–153; BP diastolic 62–79
[2023-01-29] MEDS: DEXTROSE 5%/0.9% SOD CHL 1,000 ML IV SCH ×2 (00:06→17:09)
[2023-01-29] MEDS: SUCRALFATE 1 GM TAB PO SCH ×4 (07:30→20:52)
[2023-01-29] MEDS: PANTOPRAZOLE SOD 40 MG TABEC PO SCH ×2 (07:30→17:06)
[2023-01-29] MEDS: ASPIRIN 81 MG ENTERIC COATED PO SCH (09:00)
[2023-01-29] MEDS: FAMOTIDINE 20 MG/2 ML VIAL IV SCH ×2 (09:22→20:52)
[2023-01-29] MEDS: ACETAMINOPHEN/ASPIRIN/CAFFEINE 1 EA TAB PO PRN (09:24)
[2023-01-29] MEDS ORDERED: ROCURONIUM BROMIDE 10 MG/ML 5ML VIAL IV ONE (12:53)
[2023-01-29] MEDS ORDERED: EPHEDRINE SULFATE INJ 50 MG/ML VIAL ONE (12:53)
[2023-01-29] MEDS ORDERED: PROPOFOL IV EMULSION 10 MG/ML 20 ML VIAL ONE (12:53)
[2023-01-29] MEDS ORDERED: LIDOCAINE HCL 2% LOCAL INJ 5 ML SDV VIAL INJ ONE (12:53)
[2023-01-29] MEDS ORDERED: DEXAMETHASONE SOD PHOS INJ 4 MG/ML SDV ONE (12:53)
[2023-01-29] MEDS ORDERED: GLYCOPYRROLATE INJ 0.2 MG/ML VIAL ONE (12:53)
[2023-01-29] MEDS ORDERED: SEVOFLURANE INHAL SOLN 250 ML PEN BTL ONE (12:53)
[2023-01-29] MEDS ORDERED: NEOSTIGMINE 1 MG/ML 10ML VIAL ONE (12:53)
[2023-01-29] MEDS ORDERED: POVIDONE IODINE 0.05% 0.05 % ML PO ONE (12:53)
[2023-01-29] MEDS ORDERED: BUPIVACAINE HCL 0.5% INJ 30 ML VIAL INJ ONE (13:12)
[2023-01-29] MEDS ORDERED: FENTANYL CITRATE/PF 100MCG/2 ML INJ ONE (13:26)
[2023-01-29] MEDS ORDERED: MIDAZOLAM HCL 2 MG/2 ML VIAL ONE (13:26)
[2023-01-29] MEDS ORDERED: HYDROCODONE/APAP 7.5MG-325MG 1 EA TAB PO PRN (15:45)
[2023-01-29] MEDS ORDERED: ACETAMINOPHEN 1000 MG/100 ML 100 ML IV ONE (15:52)
[2023-01-29] MEDS ORDERED: ACETAMINOPHEN 1000 MG/100 ML IV ONE (15:53)
[2023-01-29] MEDS: HYDROMORPHONE 1MG/1ML INJ IV PRN ×2 (17:06→21:14)
[2023-01-29] MEDS ORDERED: PROMETHAZINE 25MG/ NS 50ML (IV) IV PRN (17:15)
[2023-01-29] MEDS: LOSARTAN POTASSIUM 25 MG TAB PO SCH (20:51)
[2023-01-30 00:27] VITALS: BP 108/70
[2023-01-30 04:55] LABS: BASOPHILS % 0.4 % (0.0-1.0); EOSINOPHILS % 0.1 % (0.0-6.0); HEMATOCRIT 42.1 % (34.2-44.1); HEMOGLOBIN 13.4 g/dL (12.0-16.0); LYMPHOCYTES # (AUTO) 1.3 (1.0-3.2); MEAN CORPUSCULAR HEMOGLOBIN 28.3 pg (28-32); MEAN CORPUSCULAR HGB CONC 31.8 g/dL (31-35); MONOCYTES # (AUTO) 0.5 (0.2-0.8); MONOCYTES % 4.7 % (4.4-11.3); NEUTROPHILS % 81.4 % (38.7-80.0); PLATELET COUNT 421 x10e3/uL (140-360); RED BLOOD COUNT 4.73 x10e6/uL (3.6-5.1); RED CELL DISTRIBUTION WIDTH 13.4 % (11.7-14.4)
[2023-01-30 05:16] LABS: ALBUMIN 3.2 g/dL (3.5-5.0); ALBUMIN/GLOBULIN RATIO 0.8 (0.8-2.0); ANION GAP 14.6 mmol/L (8-16); CREATININE, SERUM 0.71 mg/dL (0.57-1.11); POTASSIUM 4.6 mmol/L (3.5-5.1)
[2023-01-30 05:17] VITALS: BP 100/66
[2023-01-30 05:29] LABS: PHOSPHORUS 2.9 MG/DL (2.3-4.7)
[2023-01-30 08:04] VITALS: BP 101/80
[2023-01-30] MEDS: SUCRALFATE 1 GM TAB PO SCH ×2 (08:26→12:32)
[2023-01-30] MEDS: PANTOPRAZOLE SOD 40 MG TABEC PO SCH (08:26)
[2023-01-30] MEDS: FAMOTIDINE 20 MG/2 ML VIAL IV SCH (08:27)
[2023-01-30] MEDS: HYDROMORPHONE 1MG/1ML INJ IV PRN (08:27)
[2023-01-30 08:58] VITALS: BP 101/80
[2023-01-30] MEDS ORDERED: SIMETHICONE 80 MG CHEW PO ONE (10:00)
[2023-01-30 11:43] VITALS: BP 104/56
[2023-01-30 16:19] VITALS: BP 126/89
[2023-01-30] MEDS ORDERED: FAMOTIDINE 20 MG TAB PO SCH (21:00)
== END 2023-01-30 17:34 | disposition home or self-care (01) | DRG 418 ==
LOC: ER 15:31 → OBSVTOIN 17:02 → ERHOLD 17:02 → MED/SURG 20:33 → OBSVTOIN 01-27 16:27 → INTOOBSV 01-27 16:27
PROVIDERS: ADMIT Internal Medicine; ATTEND Internal Medicine
PROC: 0FT44ZZ Resection of Gallbladder, Percutaneous Endoscopic Approach (ICD-10-PCS; principal; 2023-01-25)
DX: K80.10 Calculus of gallbladder with chronic cholecystitis without obstruction (principal); I50.32 Chronic diastolic (congestive) heart failure; I11.0 Hypertensive heart disease with heart failure; E87.5 Hyperkalemia; E78.5 Hyperlipidemia, unspecified; E11.69 Type 2 diabetes mellitus with other specified complication; E66.09 Other obesity due to excess calories; Z68.29 Body mass index [BMI] 29.0-29.9, adult; G24.9 Dystonia, unspecified; K91.0 Vomiting following gastrointestinal surgery; K21.9 Gastro-esophageal reflux disease without esophagitis; E11.65 Type 2 diabetes mellitus with hyperglycemia; Z20.822 Contact with and (suspected) exposure to COVID-19; K82.8 Other specified diseases of gallbladder; K44.9 Diaphragmatic hernia without obstruction or gangrene
CPT/HCPCS: 36415; 71045; 76705; 78227; 80048; 80053; 80061; 81025; 82550; 82553; 82948; 83735; 83880; 84100; 84484; 85025; 85379; 85610; 85730; 88304; 93005; 93306; 94799; 99284; A9537; C1766; G0378; J1100; J1170; J2001; J2250; J2270; J2550; J2710; J7042

== ENCOUNTER 2025-01-26 21:54 | Emergency (ER) | payer BC ==
[~2025-01-26] VITALS: Ht 165.1 cm; Wt 72.6 kg
[~2025-01-26 21:54] MED LIST changes: +EXCEDRIN MIGRA1 EAC3 PO; +PROTONIX20 MG PO
[2025-01-26 21:58] VITALS: TEMP 98.1
[2025-01-26 22:17] LABS: BASOPHILS # (AUTO) 0.1 (0.0-0.1); BASOPHILS % 0.7 % (0.0-1.0); EOSINOPHILS # (AUTO) 0.1 (0.0-0.4); EOSINOPHILS % 0.6 % (0.0-6.0); HEMATOCRIT 45.2 % (34.2-44.1); HEMOGLOBIN 14.7 g/dL (12.0-16.0); LYMPHOCYTES # (AUTO) 2.6 (1.0-3.2); MEAN CORPUSCULAR HEMOGLOBIN 28.2 pg (28-32); MEAN CORPUSCULAR HGB CONC 32.5 g/dL (31-35); MEAN CORPUSCULAR VOLUME 86.6 fL (81-99); MONOCYTES # (AUTO) 0.6 (0.2-0.8); MONOCYTES % 6.2 % (4.4-11.3); NEUTROPHILS # (AUTO) 6.2 (2.1-6.9); NEUTROPHILS % 65.2 % (38.7-80.0); PLATELET COUNT 364 x10e3/uL (140-360); RED BLOOD COUNT 5.22 x10e6/uL (3.6-5.1); RED CELL DISTRIBUTION WIDTH 14.1 % (11.7-14.4); WHITE BLOOD COUNT 9.57 x10e3/uL (4.8-10.8)
[2025-01-26 22:33] LABS: ALBUMIN 4.2 g/dL (3.5-5.0); ANION GAP 21.7 mmol/L (8-16); BILIRUBIN,TOTAL 0.5 mg/dL (0.2-1.2); CALCIUM 9.8 mg/dL (8.4-10.2); CREATININE, SERUM 0.78 mg/dL (0.57-1.11); POTASSIUM 3.7 mmol/L (3.5-5.1); TOTAL PROTEIN 8.4 g/dL (6.5-8.1)
[2025-01-27 01:00] VITALS: PULSE 72; RESP 12
[2025-01-27] MEDS ORDERED: CYCLOBENZAPRINE10 MG PO (01:15)
[2025-01-27] MEDS: KETOROLAC TROMETHAMINE 60 MG/2 ML VIAL IM ONE (01:21)
[2025-01-27] MEDS: CYCLOBENZAPRINE HCL 10 MG TAB PO ONE (01:21)
[2025-01-27 01:24] VITALS: BP 108/66; PULSE 72; RESP 12; O2SAT 100
== END 2025-01-27 01:20 | disposition home or self-care (01) ==
LOC: ER 22:01
DX: R20.2 Paresthesia of skin (principal); M50.30 Other cervical disc degeneration, unspecified cervical region; R51.9 Headache, unspecified; I10 Essential (primary) hypertension; E11.65 Type 2 diabetes mellitus with hyperglycemia; E78.5 Hyperlipidemia, unspecified; E78.00 Pure hypercholesterolemia, unspecified; K21.9 Gastro-esophageal reflux disease without esophagitis; M54.9 Dorsalgia, unspecified; G89.29 Other chronic pain; F41.9 Anxiety disorder, unspecified; Z87.442 Personal history of urinary calculi
CPT/HCPCS: 36415; 70450; 72125; 80053; 85025; 99284; J1885